=== PATIENT | female | born 1995 | race Caucasian/White ===

== ENCOUNTER → 2020-10-15 | Outpatient (CLI) | payer OTHER ==
[~2020-10-15] MED LIST: OMNIPAQUE 350 MG/ML, 100ML BOTTLE ONE
== END | disposition home or self-care (01) ==
LOC: EDSTATUS 08-23 10:45 → CFH 10:11 → EDSTATUS 10:30
PROVIDERS: ATTEND Otolaryngology
DX: R22.1 Localized swelling, mass and lump, neck (principal)
CPT/HCPCS: 70491; Q9967

== ENCOUNTER 2021-02-14 11:41 | Emergency (ER) | payer OTHER ==
[~2021-02-14] VITALS: Ht 157.5 cm; Wt 54.5 kg
--- NOTE | 2021-02-14 11:57 | NUR ---
PT TO US.
--- NOTE | 2021-02-14 12:27 | NUR ---
PT STILL IN US.
--- NOTE | 2021-02-14 12:34 | NUR ---
FIRST CONTACT W/ PT, PT REPORTS RLQ ABD PAIN X2-3 DAYS, X4 WEEKS . PT REPORTS HX OF OVARIAN CYSTS AND ENDOMETRIOSIS. VSS, NADN.
[2021-02-14 12:47] LABS: BASOPHILS % (AUTO) 0 % (0-1); EOSINOPHILS % (AUTO) 1 % (1-7); LYMPHOCYTES % (AUTO) 35 % (22-44); MEAN CORPUSCULAR HEMOGLOBIN 32.8 pg (27.0-34.8); MEAN CORPUSCULAR HGB CONC 34.6 g/dL (32.4-35.8); MEAN PLATELET VOLUME 9.9 fL (7.4-10.4); MONOCYTES % (AUTO) 7 % (2-9); NEUTROPHILS % (AUTO) 57 % (42-75); PLATELET COUNT 196 x10^3/uL (130-400); RED BLOOD COUNT 4.23 x10^6/uL (3.82-5.3); RED CELL DISTRIBUTION WIDTH 13.2 % (9.6-15.2)
[2021-02-14 12:50] LABS: MD NO
[2021-02-14 12:56] LABS: ALBUMIN 4.3 g/dL (3.4-5.0); ANION GAP 6 mmol/L (5-15); CALCIUM 9.2 mg/dL (8.5-10.1); CHLORIDE 110 mmol/L (98-107); CREATININE 0.76 mg/dL (0.55-1.02)
[2021-02-14 13:08] VITALS: BP 102/71
--- NOTE | 2021-02-14 13:48 | NUR ---
Patient given discharge instructions and they have confirmed that they understand the instructions. Patient ambulatory with steady gait.
== END 2021-02-14 13:50 | disposition home or self-care (01) ==
LOC: ED 13:40
DX: O46.91 Antepartum hemorrhage, unspecified, first trimester (principal); N83.291 Other ovarian cyst, right side; R10.2 Pelvic and perineal pain; Z3A.01 Less than 8 weeks gestation of pregnancy
CPT/HCPCS: 36415; 76801; 80048; 82040; 84702; 85025; 99284

== ENCOUNTER → 2021-02-16 | Outpatient (CLI) | payer OTHER | END | disposition home or self-care (01) | LOC: LAB 07:19 | PROVIDERS: ATTEND Emergency Medicine | DX: R10.2 Pelvic and perineal pain (principal) | CPT/HCPCS: 36415; 84702 ==

== ENCOUNTER 2021-02-25 15:23 | Emergency (ER) | payer OTHER ==
[~2021-02-25] VITALS: Ht 157.5 cm; Wt 54.4 kg
--- NOTE | 2021-02-25 16:22 | NUR ---
POLICY LOAN CALCULATOR: PT TO ROOM FROM [facility].
--- NOTE | 2021-02-25 16:33 | NUR ---
PT TO ROOM 35 R SIDE ABD PAIN. PT STATES SHE WAS SEEN HERE RECENTLY AND WAS TOLD SHE HAD A CYST. AT THAT TIME COULD NOT R/O ECTOPIC OR NOT. WAS TOLD TO COME IN BY ERP DR. ETIENNE. DENIES VB. +CRAMPING. PT RESTING ON GURNEY. NADN. MONITORS APPLIED. VSS. WARM BLANKET PROVIDED. ERP DR. ETIENNE AT BEDSIDE FOR RE-EVAL.
[2021-02-25 16:39] VITALS: BP 163/96
--- NOTE | 2021-02-25 17:14 | NUR ---
PER ERP DR. ETIENNE NO NEED TO DO RH. PT STATES SHE IS BLOOD TYPE B+
== END 2021-02-25 17:21 | disposition home or self-care (01) ==
LOC: ED 15:41
DX: O02.0 Blighted ovum and nonhydatidiform mole (principal); O08.9 Unspecified complication following an ectopic and molar pregnancy; Z3A.01 Less than 8 weeks gestation of pregnancy
CPT/HCPCS: 36415; 76801; 84702; 99284

== ENCOUNTER 2021-03-22 07:29 | Emergency (ER) | payer OTHER ==
[~2021-03-22] VITALS: Ht 157.5 cm; Wt 52.4 kg
--- NOTE | 2021-03-22 07:55 | NUR ---
solicitor patent: pt having labs drawn then from lobby to room 25
[2021-03-22] MEDS ORDERED: ONDANSETRON 2MG/ML, 2ML IVPush ONE (08:00)
[2021-03-22] MEDS ORDERED: SODIUM CHLORIDE 0.9% 1,000ML IVBOLUS ONE (08:00)
[2021-03-22] MEDS ORDERED: SODIUM CHLORIDE FLUSH 10ML SYR IVF ONE (08:00)
[2021-03-22] MEDS ORDERED: ONDANSETRON 2MG/ML, 2ML ONE (08:10)
[2021-03-22 08:11] LABS: BASOPHILS % (AUTO) 0 % (0-1); EOSINOPHILS % (AUTO) 0 % (1-7); LYMPHOCYTES % (AUTO) 6 % (22-44); MEAN CORPUSCULAR HEMOGLOBIN 33.3 pg (27.0-34.8); MEAN CORPUSCULAR HGB CONC 35.3 g/dL (32.4-35.8); MEAN PLATELET VOLUME 9.7 fL (7.4-10.4); MONOCYTES % (AUTO) 4 % (2-9); NEUTROPHILS % (AUTO) 90 % (42-75); PLATELET COUNT 188 x10^3/uL (130-400); RED BLOOD COUNT 4.04 x10^6/uL (3.82-5.3); RED CELL DISTRIBUTION WIDTH 12.8 % (9.6-15.2)
[2021-03-22 08:18] LABS: ALANINE AMINOTRANSFERASE 24 U/L (12-78); ALBUMIN 3.8 g/dL (3.4-5.0); ANION GAP 8 mmol/L (5-15); CALCIUM 8.9 mg/dL (8.5-10.1); CHLORIDE 107 mmol/L (98-107); CREATININE 0.55 mg/dL (0.55-1.02)
[2021-03-22 08:20] LABS: ALKALINE PHOSPHATASE 48 U/L (45-117); BILIRUBIN,TOTAL 0.9 mg/dL (0.2-1.0); TOTAL PROTEIN 7.3 g/dL (6.4-8.2)
--- NOTE | 2021-03-22 08:23 | NUR ---
PT IS 7 WEEKS . YESTERDAY AROUND 1500 HAD SOME CHICKEN NUGGETS AND STARTED TO THROW UP, AND AT DINNER TIME WAS UNABLE TO KEEP ANYTHING DOWN. HAS HAD 13 EPISODES OF VOMMITING FROM 2100 TO 0600. TOOK ANTI NAUSEA MEDICATION AT 2000 AND AT 0200 THAT DIDN'T DO MUCH. WITH AND NOT BEING ABLE TO KEEP ANYTHING DOWN HER OB DOCTOR ADVISED HER TO COME TO ER THIS AM.
--- NOTE | 2021-03-22 09:09 | NUR ---
fluid challenge with gatorade that patient brought in.
--- NOTE | 2021-03-22 09:30 | NUR ---
PROVIDER AT BEDSIDE, [facility]A SENT.
--- NOTE | 2021-03-22 09:45 | NUR ---
Keysha singleton in [facility] - 03/22/21 at 0959 by [email or web address] PT STATES PAIN IS BETTER IN THE ANKLE AFTER BEING MEDICATED.
[2021-03-22 09:52] LABS: MICROSCOPIC NOT IND
--- NOTE | 2021-03-22 10:09 | NUR ---
Patient given discharge instructions and they have confirmed that they understand the instructions. Patient ambulatory with steady gait. No questions at time of discharge.
== END 2021-03-22 10:11 | disposition home or self-care (01) ==
LOC: ED 09:18
DX: O26.891 Other specified pregnancy related conditions, first trimester (principal); R11.2 Nausea with vomiting, unspecified; Z3A.01 Less than 8 weeks gestation of pregnancy
CPT/HCPCS: 36415; 80053; 81003; 85025; 96361; 96374; 99283; J2405; J7030

== ENCOUNTER 2021-06-27 11:05 | Outpatient (CLI) | payer OTHER ==
[~2021-06-27] VITALS: Ht 157.5 cm; Wt 53.2 kg
[2021-06-27 11:33] LABS: MICROSCOPIC NOT IND
[2021-06-27 11:41] VITALS: BP 122/79
[2021-06-27] MEDS ORDERED: PREN1TAB60 PO (15:17)
[2021-06-27] MEDS ORDERED: DOXY1TAB6 PO (15:18)
[2021-06-30] MEDS ORDERED: NIFE10CA49 PO (12:28)
== END 2021-06-27 15:33 | disposition home or self-care (01) ==
LOC: LDOP 11:05
PROVIDERS: ATTEND Obstetrics & Gynecology
DX: O62.9 Abnormality of forces of labor, unspecified (principal); O26.892 Other specified pregnancy related conditions, second trimester; R10.9 Unspecified abdominal pain; N80.9 Endometriosis, unspecified; Z3A.22 22 weeks gestation of pregnancy
CPT/HCPCS: 76805; 76817; 81003; 87086; 99211; G0463